=== PATIENT | male | born 1995 | race Caucasian/White ===

== ENCOUNTER 2018-11-22 05:34 | Inpatient (IN) | payer OTHER ==
[~2018-11-22] VITALS: Ht 172.7 cm; Wt 73.6 kg
[2018-11-22] VITALS (126 sets, daily range): BP systolic 105–122; BP diastolic 42–83; PULSE 16–90; TEMP 97.2–98.2; O2SAT 67–100
--- NOTE | 2018-11-22 05:14 | NUR ---
Received telephone report from AURA Garcia from [facility]. ETA [id number].
--- NOTE | 2018-11-22 08:00 | NUR ---
Korina BANEGAS and Ghanshyam BANEGAS called to notify pt here on unit with no orders. Pt alert and oriented in no pain, stating only fatigued and hungry. Call light within reach.
[2018-11-22 08:43] LABS: BASO # 0.1 (0.0-0.2); BASO % 0.6 % (0.0-2.0); EOS # 0.2 (0.0-0.7); EOS % 2.8 % (0-4.0); GRAN # 5.3 (1.4-6.5); GRAN % 63.8 % (42.2-75.2); HEMATOCRIT 43.5 % (42.0-52.0); HEMOGLOBIN 15.1 g/dl (13.5-18.0); LYMPH % 24.1 % (20.0-51.0); MEAN CELL VOLUME 89 fl (80.0-100.0); MEAN CORPUSCULAR HEMOGLOBIN 31 pg (27.0-31.0); MEAN CORPUSCULAR HGB CONC 35 g/dl (33.0-37.0); MEAN PLATELET VOLUME 10.4 fl (7.4-10.4); MONO # 0.7 (0.1-0.6); MONO % 8.6 % (1.7-9.3); PLATELET COUNT 211 K/mm3 (130-400); RED BLOOD COUNT 4.91 M/mm3 (4.20-5.60); REDCELL DISTRIBUTION WIDTH-CV 11.9 % (11.5-14.5)
[2018-11-22 08:50] LABS: ALBUMIN 4.2 gm/dL (3.5-5.0); BILIRUBIN,TOTAL 0.9 mg/dL (0.0-1.0); CALCIUM 9.6 mg/dL (8.4-10.2); CREATININE, serum 0.88 mg/dL (0.66-1.25); MAGNESIUM 2.3 mg/dL (1.6-2.3); POTASSIUM 4.5 mmol/L (3.4-5.0); TOTAL PROTEIN 7.2 gm/dL (6.4-8.2)
--- NOTE | 2018-11-22 08:56 | NUR ---
Staff Sgt. Lazo called and updated on status per request of pt. Transportation will be arranged for pt after discharge.
--- NOTE | 2018-11-22 10:38 | NUR ---
Ghanshyam BANEGAS at bedside assessing pt
--- NOTE | 2018-11-22 12:00 | NUR ---
PATIENT ASSESSMENT COMPLETED. HE IS ORIENTED TO ROOM 258. HE HAS A FRIEND THAT WILL BRING HIM SOME LUNCH. HE DENIES PAIN. SEIZURE PRECAUTIONS/PADS IN PLACE. HE WILL CALL FOR ASSISTANCE.
--- NOTE | 2018-11-22 13:28 | NUR ---
Patient resides in housing in the [facility] and plans to discharge back home upon discharge. Patient had a seizure episode while staying at a friend's house and has had no prior history of seizure activity. Patient is independent with daily living activities as he is a employed with the [employer], his primary care physican/medical care are from [facility], his pharmacy is [facility], and he does not have advance directives completed at this time. No further needs and social science research assistant will follow as needed. Patient's boss is Sgt. Nico Syed ([phone]) and his uncle Jimmie's contact is ([phone]).
--- NOTE | 2018-11-22 20:30 | NUR ---
Intial shift assessment done- denies pain, no seizure activity- would like some ice cream tonight,, has a slight headache-tylenol given, tele on, SCD,s on--would like them off for awhile-
[2018-11-23 01:07] VITALS: BP 115/52; PULSE 50; TEMP 97.8
[2018-11-23 04:35] VITALS: BP 112/62; PULSE 48; TEMP 97.3
--- NOTE | 2018-11-23 05:28 | NUR ---
Quiet night- no seizure activity. Did have sandwich before bed- states he was just hungry and thought some food would help the headache- Tylenol give just once at beginning of shift- states does not need more at this time. Tele on- bradycardic at 50/min
[2018-11-23 07:50] VITALS: BP 118/60; PULSE 55; TEMP 98.3
--- NOTE | 2018-11-23 08:10 | NUR ---
Patient is alert and oriented, sitting up in bed. Neuro checks are normal. Reports headache, medications given. No seizure activity observed at this point. Patient taking adequate fluids PO. VSS. Call light within reach and will continue to monitor.
[2018-11-23 10:50] VITALS: BP 121/59; BP 139/61
--- NOTE | 2018-11-23 13:06 | NUR ---
Patient transported down with cardiopulmonary for EEG
[2018-11-23] MEDS ORDERED: KEPPRA1000 MG PO (14:12)
--- NOTE | 2018-11-23 15:55 | NUR ---
Discharge instructions reviewed with patient. Patient reports understanding of instructions and denies any questions. Prescription for Keppra and work note given to patient. IV removed, no complication.s Patient escorted out with this RN.
== END 2018-11-23 15:56 | disposition home or self-care (01) | DRG 101 ==
LOC: IMCU 05:34 → ICU 06:32 → MEDICAL 12:05
PROVIDERS: Internal Medicine; ADMIT Hospitalist
DX: R56.9 Unspecified convulsions (principal); R51 Headache
CPT/HCPCS: 99222-AI; 99239; A9585

== ENCOUNTER 2018-12-01 21:33 | Inpatient (IN) | payer OTHER ==
[~2018-12-01] VITALS: Ht 172.7 cm; Wt 70.4 kg
[~2018-12-01 21:33] MED LIST: KEPPRA1000 MG PO
[2018-12-01 22:04] LABS: BASO # 0.1 (0.0-0.2); BASO % 0.5 % (0.0-2.0); EOS # 0.3 (0.0-0.7); EOS % 2.4 % (0-4.0); GRAN # 6.2 (1.4-6.5); GRAN % 56.6 % (42.2-75.2); HEMATOCRIT 43.1 % (42.0-52.0); HEMOGLOBIN 15.4 g/dl (13.5-18.0); LYMPH # 3.4 (1.2-3.4); LYMPH % 31.2 % (20.0-51.0); MEAN CELL VOLUME 87 fl (80.0-100.0); MEAN CORPUSCULAR HEMOGLOBIN 31 pg (27.0-31.0); MEAN CORPUSCULAR HGB CONC 36 g/dl (33.0-37.0); MEAN PLATELET VOLUME 10.8 fl (7.4-10.4); PLATELET COUNT 235 K/mm3 (130-400); RED BLOOD COUNT 4.96 M/mm3 (4.20-5.60); REDCELL DISTRIBUTION WIDTH-CV 11.9 % (11.5-14.5)
[2018-12-01 22:23] LABS: ALBUMIN 4.4 gm/dL (3.5-5.0); BILIRUBIN,TOTAL 0.4 mg/dL (0.0-1.0); CALCIUM 9.6 mg/dL (8.4-10.2); CREATININE, serum 0.84 mg/dL (0.66-1.25); POTASSIUM 3.9 mmol/L (3.4-5.0); TOTAL PROTEIN 7.7 gm/dL (6.4-8.2)
[2018-12-01 22:37] LABS: PROLACTIN 24.4 ng/mL (3.7-17.9)
[2018-12-01] MEDS ORDERED: KEPPRA 500MG500 MG PO (23:09)
[2018-12-02 01:03] VITALS: BP 106/50; PULSE 48
--- NOTE | 2018-12-02 02:08 | NUR ---
Completed PT assessment and admission; 22yo M sleeping upon arrival from ER; PT resting peacefully in bed. 20G LT forearm IV in place; NS at 125mL/hr, VS WNL, PT arrived with TELE in place, report stated that there was a pending f/u with Dr. Morrissey 12/02/18, HX: new DX of bilateral epilepsy/seizures; recent hospitalization one week ago. 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 Spouse and supervisor jewelry department in room with PT. No seizure like activity during assessment or admission period. Bed placed in the low position with seizure pads on rails; No significant skin conditions found during assessment; gown and basic care items placed in room. Call light placed within reach; No further needs or concerns at time of exit. Will continue to monitor. CDA
[2018-12-02 03:06] VITALS: BP 105/51; PULSE 63; TEMP 98.8
--- NOTE | 2018-12-02 05:29 | NUR ---
TELE monitoring has been unreadable since arrival, after multiple attempts to adjust leads and tabs; Request for new box made to ICU TELE. Comfirmation to continue TELE d/t seizure diagnosis per NICO Montanez. New TELE box placed on PT approximately 0530. Call light placed within reach; Will continue to monitor. CDA
[2018-12-02 06:38] LABS: BASO % 0.3 % (0.0-2.0); EOS # 0.3 (0.0-0.7); EOS % 3.5 % (0-4.0); GRAN # 4.2 (1.4-6.5); GRAN % 56.5 % (42.2-75.2); HEMATOCRIT 41.9 % (42.0-52.0); HEMOGLOBIN 14.6 g/dl (13.5-18.0); LYMPH # 2.2 (1.2-3.4); LYMPH % 28.9 % (20.0-51.0); MEAN CELL VOLUME 89 fl (80.0-100.0); MEAN CORPUSCULAR HEMOGLOBIN 31 pg (27.0-31.0); MEAN CORPUSCULAR HGB CONC 35 g/dl (33.0-37.0); MEAN PLATELET VOLUME 10.6 fl (7.4-10.4); MONO # 0.8 (0.1-0.6); MONO % 10.7 % (1.7-9.3); PLATELET COUNT 201 K/mm3 (130-400); RED BLOOD COUNT 4.71 M/mm3 (4.20-5.60); REDCELL DISTRIBUTION WIDTH-CV 11.9 % (11.5-14.5)
--- NOTE | 2018-12-02 06:47 | NUR ---
PT had uneventful evening; PT continues to rest well in bed; TELE replaced and appears to be working without issues. Admission completed with assistance from spouse and friend. IV in place on LT forearm with NS at 125mL/hr. Computer Tech in room. No complaints or further needs at time of exit; Call light placed in room; Report given to dayshift. CDA
[2018-12-02 06:53] LABS: ALBUMIN 3.9 gm/dL (3.5-5.0); BILIRUBIN,TOTAL 0.6 mg/dL (0.0-1.0); CREATININE, serum 0.86 mg/dL (0.66-1.25); POTASSIUM 4.3 mmol/L (3.4-5.0); TOTAL PROTEIN 6.8 gm/dL (6.4-8.2)
--- NOTE | 2018-12-02 07:29 | NUR ---
Pt alert and oriented. Stating "head feels like its in a fog" also states "some chest pain that has been there since right before the first seizure". Pt has visitor in room. While assessing neuro status and memory pt states "I remember you from when I was in the ICU for the first seizure". Call light within reach. No other complaints at this time - pt wishes to go back to sleep at this time
[2018-12-02 08:51] VITALS: BP 121/72; PULSE 50; TEMP 98.7
[2018-12-02 09:25] LABS: PH 6 (5-8); SQUAMOUS EPITHELIAL None Seen /hpf; URINE APPEARANCE Clear; URINE BACTERIA None Seen /hpf; URINE BILIRUBIN Negative (NEGATIVE); URINE BLOOD 1+ (NEGATIVE); URINE COLOR Straw; URINE GLUCOSE Negative (NEGATIVE); URINE KETONE Negative (NEGATIVE); URINE LEUKOCYTE ESTERASE Negative (NEGATIVE); URINE NITRATE Negative (NEGATIVE); URINE PROTEIN(semi-quant) Negative (NEGATIVE); URINE RBC 0-2 /hpf; URINE UROBILINOGEN Negative (NEGATIVE)
[2018-12-02 09:32] LABS: COLLECTION METHOD CLEAN CATCH
[2018-12-02 09:33] LABS: TRICYCLIC ANTIDEPRESS URINE NEGATIVE
[2018-12-02 11:29] VITALS: BP 115/54; PULSE 96; TEMP 97.6
--- NOTE | 2018-12-02 12:19 | NUR ---
First visit from the dealer accounts investigator. No needs right now.
--- NOTE | 2018-12-02 13:00 | NUR ---
Pt off unit and telemetry for EEG
--- NOTE | 2018-12-02 14:00 | NUR ---
Pt has returned to unit from EEG. Per pest control chemical technician pt is requesting Ativan. Currently the PRN Ativan order is for during active seizure. Upon reassessment pt did not request Ativan, did complain of generalized fatigue, headache and nausea relieved with position change. Denies need for anything at this time. Pt's NCO (Non-Commissioned [employer]) at bedside with pt.
--- NOTE | 2018-12-02 16:11 | NUR ---
SUNNY attended clinical rounding and met with patient to discuss discharge planning. Patient lives in [place] in housing. Patients PCP is [facility] and he obtains his [facility]. 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 has started him on Vimpat which is expensive. SUNNY and BOY will work with [facility] to see about coverage and cost to patient out of pocket. No othe rneeds at this time.
--- NOTE | 2018-12-02 19:49 | NUR ---
PT WAS A/O X4 IN BED SITTING UP. PT REQUESTED ATIVAN TO HELP HIM SLEEP. ADVISED THAT ATIVAN IS ONLY IF HE IS HAVING AN ACTIVE SEIZURE. PT DENIES PAIN OR DISCOMFORT AT THIS TIME. NO FURTHER NEEDS AND CALL LIGHT WITHIN REACH.
[2018-12-02 21:55] VITALS: BP 124/68; PULSE 94; TEMP 97.6
[2018-12-03 01:33] VITALS: BP 122/55; PULSE 43; TEMP 97.9
[2018-12-03 04:30] VITALS: BP 102/40; PULSE 43; TEMP 97.7
[2018-12-03 04:33] VITALS: BP 119/54
--- NOTE | 2018-12-03 06:36 | NUR ---
UNEVENTFUL NIGHT. PT DID NOT HAVE ANY SEIZURE ACTIVITY. PT SLEPT/RESTED MOST OF THE NIGHT. PT DID WAKE UP FOR VS AND NEURO CHECKS AND THEN DRIFTED BACK TO SLEEP. CALL LIGHT WITHIN REACH.
[2018-12-03 07:51] VITALS: BP 124/65; PULSE 45; TEMP 97.7
[2018-12-03] MEDS ORDERED: VIMPAT200 MG PO (08:25)
--- NOTE | 2018-12-03 09:54 | NUR ---
Pt alert and oriented. Pt complaining of generalized headache, chest pain, and states vomiting at 0700 twice - first was clear vomit - second vomit pt states "looked like coffee grounds - flakes of small black stuff". The emesis was flushed down commode and was therefore unwitnessed. Toilet bowl was clean with no residue of vomit. Pt instructed to save next vomit for assessment by staff. MD Ghanshyam states pt can go home today - and next time pt has seizure he should go to [facility]. MD Callie aware of the vomiting reported by pt.
--- NOTE | 2018-12-03 11:27 | NUR ---
Pt discharged. Pt ambulated to vistor entrance/exit where he was picked up by private vehicle. All questions asked by pt were answered
== END 2018-12-03 11:00 | disposition home or self-care (01) | DRG 101 ==
LOC: COL.ER 21:33 → MEDICAL 23:26
PROVIDERS: Emergency Medicine; Nurse Practitioner
DX: G40.909 Epilepsy, unspecified, not intractable, without status epilepticus (principal); Z87.891 Personal history of nicotine dependence
CPT/HCPCS: 99239; A9585; J1953; J2060; J7030

== ENCOUNTER 2018-12-13 19:25 | Emergency (ER) | payer OTHER ==
[~2018-12-13] VITALS: Ht 172.7 cm; Wt 63.6 kg
[~2018-12-13 19:25] MED LIST changes: +KEPPRA 500MG500 MG PO; +VIMPAT200 MG PO
[2018-12-13 19:26] VITALS: TEMP 97.8
[2018-12-13 19:50] LABS: BASO # 0.1 (0.0-0.2); BASO % 0.5 % (0.0-2.0); EOS # 0.4 (0.0-0.7); EOS % 3.1 % (0-4.0); GRAN # 6.8 (1.4-6.5); GRAN % 60.9 % (42.2-75.2); HEMATOCRIT 44.6 % (42.0-52.0); HEMOGLOBIN 15.7 g/dl (13.5-18.0); LYMPH % 26.6 % (20.0-51.0); MEAN CELL VOLUME 87 fl (80.0-100.0); MEAN CORPUSCULAR HEMOGLOBIN 31 pg (27.0-31.0); MEAN CORPUSCULAR HGB CONC 35 g/dl (33.0-37.0); MEAN PLATELET VOLUME 10.3 fl (7.4-10.4); MONO % 8.5 % (1.7-9.3); PLATELET COUNT 240 K/mm3 (130-400); RED BLOOD COUNT 5.13 M/mm3 (4.20-5.60); REDCELL DISTRIBUTION WIDTH-CV 11.6 % (11.5-14.5)
[2018-12-13 20:01] LABS: ALANINE AMINOTRANSFERASE 33 U/L (21-72); ALBUMIN 4.4 gm/dL (3.5-5.0); ALKALINE PHOSPHATASE 99 U/L (50-136); ANION GAP 8 mmol/L (7-16); AST,SGOT 21 U/L (15-37); BILIRUBIN,TOTAL 0.5 mg/dL (0.0-1.0); BLOOD UREA NITROGEN 18 mg/dL (9-20); CALCIUM 9.8 mg/dL (8.4-10.2); CARBON DIOXIDE 30 mmol/L (22-30); CHLORIDE 101 mmol/L (98-107); CREATININE, serum 0.98 mg/dL (0.66-1.25); GLUCOSE 98 mg/dL (74-106); POTASSIUM 3.6 mmol/L (3.4-5.0); SODIUM 139 mmol/L (137-145); TOTAL PROTEIN 7.9 gm/dL (6.4-8.2)
[2018-12-13 20:04] LABS: ALCOHOL(ethanol),MEDICAL < 10 mg/dL
[2018-12-13 20:17] LABS: PROLACTIN 20.4 ng/mL (3.7-17.9)
[2018-12-13] MEDS ORDERED: ATIVAN 1MG T1 MG/TAB PO (20:40)
[2018-12-13 21:47] LABS: TRICYCLIC ANTIDEPRESS URINE NEGATIVE
[2018-12-13 23:20] VITALS: BP 95/50; PULSE 49
== END 2018-12-13 23:20 | disposition home or self-care (01) ==
LOC: COL.ER 19:25
PROVIDERS: Emergency Medicine
DX: G40.909 Epilepsy, unspecified, not intractable, without status epilepticus (principal)
CPT/HCPCS: J2060; Q2009